=== PATIENT | male | born 1945 | race Caucasian/White ===

== ENCOUNTER 2018-02-21 13:03 | Emergency (ER) | payer OTHER ==
[~2018-02-21] VITALS: Ht 170.2 cm; Wt 74.8 kg
[~2018-02-21 13:03] MED LIST: ACETAMINOPHEN325 M1 PO; CEPHALEXIN 500500 M1 PO; CIPROFLOXACIN500 M3 PO; FISH OIL 1,0001 EAC5 PO; HYDROCODON-ACE1 EA12 PO; HYDROCODON-ACE1 EAC7 PO; LEVAQUIN 500 M500 M1 PO; VITAMIN B-12500 MCG PO; VOL-CARE RX TA1 EACH
[2018-02-21] MEDS ORDERED: CITRATE OF MAG296 ML PO (13:48)
== END 2018-02-21 14:41 | disposition home or self-care (01) ==
LOC: ER 13:03
DX: K56.41 Fecal impaction (principal)